=== PATIENT | female | born 1955 | race Caucasian/White ===

== ENCOUNTER 2017-04-19 09:33 | Day surgery (SDC) | payer BC ==
[2017-04-18 11:22] LABS: HEMATOCRIT 36.7 % (36.0-48.0); HEMOGLOBIN 12.2 g/dL (12.0-16.0)
[2017-04-18 11:31] LABS: BUN (BLOOD UREA NITROGEN) 14 MG/DL (6-23); CALCIUM, SERUM 8.7 MG/DL (8.5-10.4); CHLORIDE, SERUM 110 MMOL/L (96-112); CO2 (CARBON DIOXIDE) 28 MMOL/L (24-34); CREATININE 0.66 MG/DL (0.55-1.02); GFR AFRICAN AMERICAN 109 ML/MIN (>=60); GFR NON AFRICAN AMERICAN 94 ML/MIN (>=60); GLUCOSE, SERUM 102 MG/DL (60-99); SODIUM, SERUM 144 MMOL/L (135-148)
[2017-04-18 11:32] LABS: POTASSIUM, SERUM 4.2 MMOL/L (3.5-5.3)
[~2017-04-19] VITALS: Ht 167.6 cm; Wt 107.0 kg
--- NOTE | ~2017-04-19 | OP ---
Record Of [place] [id number] [facility] [place]. [address] NAME: KRISTOPHER LAYTON : 51 STATUS : [facility]#: [id number] AGE: 61 ADM/REG DATE : 04/19/17 MR#: [id number] REPORT SERV DATE: 04/20/17 DICTATED BY: RAMYA KATZ JR. 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 She had an incidental finding recently of ultrasound finding of a nodule under deep axilla within the axillary nodes. Resection with axillary dissection showed a T2 malignancy that had 1/30 nodes involved. She has undergone counseling and now is scheduled for chemotherapy prior to x-ray therapy. She is in need of venous access for chemotherapy. PREOPERATIVE DIAGNOSIS: Carcinoma of right breast with need of access for chemotherapy. POSTOPERATIVE DIAGNOSIS: Carcinoma of right breast with need of access for chemotherapy. SURGERY PERFORMED: Insertion of PowerPort venous port. PROCEDURE IN DETAIL: With anesthesia support, the patient was prepped and draped in supine position in usual sterile fashion. 1% Xylocaine was used to anesthetize the infraclavicular region on the left side. The needle and wire were inserted into the vein on first passage. Fluoroscopy was used to document correct positioning. The area was anesthetized and incision made. The catheter was inserted through a tear-away introducer. This support system was assembled, aspirated, flushed, and secured to the chest wall with Prolene. The wound was irrigated and hemostasis obtained. The wound was closed with three layers of Monocryl. Final fluoroscopy revealed correct positioning of the catheter tip with no kinking or notching of the catheter. The patient tolerated the procedure well without complications. ESTIMATED BLOOD LOSS: Negligible. SPONGE COUNT: Correct. MR/MACHO Ramya Katz Jr., M.D. / [id number] Record Of [facility] [address] [place] [address] NAME: KRISTOPHER LAYTON : 51 STATUS : [facility]#: [id number] AGE: 61 ADM/REG DATE : 04/19/17 MR#: [id number] REPORT SERV DATE: 04/20/17 DICTATED BY: RAMYA KATZ JR. DATE: 04/19/17 REPORT STATUS : Draft TRANSCRIBED BY: MODL DATE: 04/19/17 CC: Dasha Egan Jr., Susan An Tran, MD Lisa Virostek, M.D. Mark Brzezienski, M.D. #[id number] (DR. KATZ) MIN
[~2017-04-19 09:33] MED LIST: ASA5GR PO; ATEN100 PO; ATV1 PO; B121000P IM; B12100T PO; MULTIPLE VIT PO; MULTIVITAMI1 PO; PRENATAL VIT PO; PRILO PO; VITAMIN D1000 UNI1 PO; WELBUTRIN; WELL100 PO; WELLXL150 PO; ZOL100 PO
== END 2017-04-19 14:43 | disposition home or self-care (01) ==
LOC: SDC 09:33
PROVIDERS: Surgery Surgical Oncology
PROC: 02HV33Z Insertion of Infusion Device into Superior Vena Cava, Percutaneous Approach (ICD-10-PCS; 2017-04-19)
PROC: 0JH63XZ Insertion of Tunneled Vascular Access Device into Chest Subcutaneous Tissue and Fascia, Percutaneous Approach (ICD-10-PCS; principal; 2017-04-19 11:15)
DX: C50.911 Malignant neoplasm of unspecified site of right female breast (principal); I10 Essential (primary) hypertension; G47.30 Sleep apnea, unspecified; Z99.89 Dependence on other enabling machines and devices; Z90.49 Acquired absence of other specified parts of digestive tract; Z98.51 Tubal ligation status; Z88.5 Allergy status to narcotic agent; Z90.13 Acquired absence of bilateral breasts and nipples
CPT/HCPCS: 71010; 77001; 80048; 85014; 85018; A9270-GY; C1751; J0690; J2250; J2405; J3010